=== PATIENT | female | born 1955 | race Caucasian/White ===

== ENCOUNTER 2016-06-29 22:10 | Emergency (ER) | payer OTHER ==
[~2016-06-29] VITALS: Ht 157.5 cm; Wt 107.1 kg
[~2016-06-29 22:10] MED LIST: ADVAIR HFA120 INHALA IH; ALTERA NEBULIZ1 EACH MC; ATORVASTATIN CA20 MG PO; ATORVASTATIN CA40 MG PO; AUGMENTIN500 MG PO; AUGMENTIN875 MG PO; CEPHALEXIN500 MG PO; CIPRO500 MG PO; DUONEB 2.5-0.5 M3 ML AEROSOL; FISH OIL 1,0001 EA10 PO; GLUCOPHAGE500 MG PO; HYCODAN SYRUP480 ML PO; HYDROCHLOROTH12.5 M3 PO; HYDROCHLOROTHIA25 MG PO; IBUPROFEN800 MG PO; KEFLEX500 MG PO; LEVAQUIN750 MG PO; LEVOFLOXACIN750 MG PO; LISINOPRIL10 MG PO; LISINOPRIL5 MG PO; MEDROL DOSEPAK4 MG PO; MELOXICAM7.5 MG PO; METFORMIN HCL500 M4 PO; METRONIDAZOLE500 MG PO; NEXIUM40 MG PO; NICODERM CQ1 EAC1 TD; NICODERM CQ1 EACH TD; NORCO 5/3251 TABLET PO; OXYBUTYNIN CHLOR5 MG PO; PREDNISONE10 MG PO; PREDNISONE20 MG PO; ROBITUSSIN AC,T10 ML PO; SPIRIVA RESPIMAT4 GM IH; TESSALON PERLE100 MG PO; TUSSIN15 MG/5 M1 PO; VENTOLIN HFA18 GM IH; VITAMIN B-122500 MCG SL; VITAMIN D32000 UNIT PO; ZITHROMAX250 MG PO
[2016-06-29 22:49] LABS: MCH 29.3 PG (29.0-34.0); MCHC 33.2 G/DL (30.0-36.0); MCV 88.4 FL (83-99); MEAN PLAT.VOLUME 9.4 uM^3 (9.5-12.4); PLATELET COUNT 311 K/uL (156-360); RBC DIS.WIDTH-CV 14.1 % (11.8-14.6); RBC DIS.WIDTH-SD 45.4 % (39-53); RED BLOOD COUNT 4.64 M/uL (3.80-5.20); WHITE BLOOD COUNT 11.9 K/uL (4.1-10.2)
[2016-06-29 22:59] LABS: CHLORIDE 102 mEq/L (99-109); POTASSIUM 3.6 mEq/L (3.7-5.4); SODIUM 140 mEq/L (136-147)
[2016-06-29 23:02] LABS: GLUCOSE 126 mg/dL (70-99)
[2016-06-29 23:03] LABS: ANION GAP 10 MEQ/L (2-14)
[2016-06-29 23:05] LABS: ALKALINE PHOSPHATASE 80 IU/L (3-129); GFR ESTIMATE (CALCULATED) > 59 mL/min/
[2016-06-29 23:05] LABS: ADD MIUA? NO; BILIRUBIN NEGATIVE; BLOOD NEGATIVE; COLOR YELLOW ((YELLOW)); GLUCOSE (STRIP) NEGATIVE; KETONES NEGATIVE; LEUKOCYTES NEGATIVE; NITRITE NEGATIVE; PROTEIN (STRIP) NEGATIVE; SPECIFIC GRAVITY 1.018 (1.000-1.030); UCUL ADDED? NO
[2016-06-29 23:06] LABS: UREA NITROGEN (BUN) 14 mg/dL (9-23)
[2016-06-29 23:07] LABS: DIRECT BILIRUBIN 0.1 mg/dL (0.0-0.3)
[2016-06-29 23:09] LABS: LIPASE 14 U/L (1.0-51.0)
[2016-06-29 23:45] LABS: TOTAL BILIRUBIN 0.3 mg/dL (0.0-1.0)
[2016-06-30] MEDS ORDERED: CIPRO500 MG PO (01:20)
[2016-06-30] MEDS ORDERED: FLAGYL500 MG PO (01:20)
[2016-06-30 01:35] VITALS: BP 113/51
== END 2016-06-30 01:47 | disposition home or self-care (01) ==
LOC: EME 22:10
PROVIDERS: Emergency Medicine
DX: K57.92 Diverticulitis of intestine, part unspecified, without perforation or abscess without bleeding (principal); E87.6 Hypokalemia; E11.9 Type 2 diabetes mellitus without complications; I10 Essential (primary) hypertension; K21.9 Gastro-esophageal reflux disease without esophagitis; F17.200 Nicotine dependence, unspecified, uncomplicated
CPT/HCPCS: 74176; 80048; 80076; 81003; 83690; 85027; 99281; 99285; J2270; J2405; J7030

== ENCOUNTER 2017-01-30 16:52 | Emergency (ER) | payer OTHER ==
[~2017-01-30] VITALS: Ht 157.5 cm; Wt 106.8 kg
[~2017-01-30 16:52] MED LIST changes: +FLAGYL500 MG PO
[2017-01-30] MEDS ORDERED: LEVAQUIN500 MG PO (18:29)
[2017-01-30] MEDS ORDERED: PREDNISONE20 MG PO (18:29)
[2017-01-30] MEDS ORDERED: DUONEB 2.5-0.5 M3 ML AEROSOL (18:29)
[2017-01-30 18:38] VITALS: BP 176/74
== END 2017-01-30 18:43 | disposition home or self-care (01) ==
LOC: EME 16:52
DX: J44.0 Chronic obstructive pulmonary disease with (acute) lower respiratory infection (principal); J18.0 Bronchopneumonia, unspecified organism; Z87.891 Personal history of nicotine dependence; E11.9 Type 2 diabetes mellitus without complications; I10 Essential (primary) hypertension; K21.9 Gastro-esophageal reflux disease without esophagitis; Z79.84 Long term (current) use of oral hypoglycemic drugs
CPT/HCPCS: 94640; 99281; 99284; J7512

== ENCOUNTER 2017-07-20 20:13 | Emergency (ER) | payer OTHER ==
[~2017-07-20] VITALS: Ht 157.5 cm; Wt 107.0 kg
[~2017-07-20 20:13] MED LIST changes: +LEVAQUIN500 MG PO
[2017-07-20 21:11] LABS: HEMATOCRIT 45.3 % (36.0-46.0); HEMOGLOBIN 14.8 G/DL (11.9-15.5); MCH 28.8 PG (29.0-34.0); MCHC 32.7 G/DL (30.0-36.0); MCV 88.3 FL (83-99); PLATELET COUNT 329 K/uL (156-360); RBC DIS.WIDTH-CV 13.3 % (11.8-14.6); RBC DIS.WIDTH-SD 43.8 % (39-53); RED BLOOD COUNT 5.13 M/uL (3.80-5.20); WHITE BLOOD COUNT 13.9 K/uL (4.1-10.2)
[2017-07-20 21:20] LABS: ALBUMIN 3.8 g/dL (3.2-4.8); CHLORIDE 104 mEq/L (99-109); POTASSIUM 4.5 mEq/L (3.7-5.4); SODIUM 140 mEq/L (136-147)
[2017-07-20 21:23] LABS: GLUCOSE 174 mg/dL (70-99); TOTAL PROTEIN 6.4 g/dL (6.4-8.3)
[2017-07-20 21:24] LABS: TOTAL BILIRUBIN 0.3 mg/dL (0.0-1.0)
[2017-07-20 21:26] LABS: ALKALINE PHOSPHATASE 96 IU/L (3-129); CREATININE 0.8 mg/dL (0.6-1.3); GFR ESTIMATE (CALCULATED) > 59 mL/min/
[2017-07-20 21:27] LABS: UREA NITROGEN (BUN) 14 mg/dL (9-23)
[2017-07-20 21:28] LABS: AST (GOT) 11 IU/L (2-34)
[2017-07-20 21:29] LABS: ALT (GPT) 14 IU/L (3-49)
[2017-07-20 23:31] LABS: APPEARANCE CLEAR ((CLEAR)); BILIRUBIN NEGATIVE; BLOOD SMALL; COLOR YELLOW ((YELLOW)); GLUCOSE (STRIP) NEGATIVE; KETONES NEGATIVE; LEUKOCYTES NEGATIVE; NITRITE NEGATIVE; PROTEIN (STRIP) NEGATIVE; SPECIFIC GRAVITY 1.023 (1.000-1.030); UROBILINOGEN 0.2 MG/DL (0.2-1.0)
[2017-07-20 23:36] LABS: BACTERIA 2+ /HPF; EPITHELIAL CELLS RARE /HPF; MUCUS TRACE /LPF; RED BLOOD CELLS 0-5 /HPF (0-5); UCUL ADDED? YES; WHITE BLOOD CELLS 0-5 /HPF (0-5)
[2017-07-21] MEDS ORDERED: FLAGYL500 MG PO (01:21)
[2017-07-21] MEDS ORDERED: PERCOCET 5/31 TABLET PO (01:21)
[2017-07-21] MEDS ORDERED: CIPRO500 MG PO (01:21)
[2017-07-21 01:26] VITALS: BP 123/75
== END 2017-07-21 01:40 | disposition home or self-care (01) ==
LOC: EME 20:13
DX: N39.0 Urinary tract infection, site not specified (principal); K57.32 Diverticulitis of large intestine without perforation or abscess without bleeding; E11.9 Type 2 diabetes mellitus without complications; Z79.84 Long term (current) use of oral hypoglycemic drugs; J44.9 Chronic obstructive pulmonary disease, unspecified; I10 Essential (primary) hypertension; K21.9 Gastro-esophageal reflux disease without esophagitis; F17.200 Nicotine dependence, unspecified, uncomplicated
CPT/HCPCS: 74176; 80053; 81003; 85027; 87077; 87086; 87186; 99281; 99284

== ENCOUNTER → 2017-10-24 | Outpatient (CLI) | payer OTHER ==
[~2017-10-24] MED LIST changes: +PERCOCET 5/31 TABLET PO
== END | disposition home or self-care (01) ==
LOC: RAD 10:42
DX: R05 Cough (principal)
CPT/HCPCS: 71046

== ENCOUNTER 2017-11-17 02:20 | Emergency (ER) | payer OTHER ==
[~2017-11-17] VITALS: Ht 157.5 cm; Wt 106.8 kg
[2017-11-17 02:50] LABS: APPEARANCE CLEAR ((CLEAR)); BILIRUBIN NEGATIVE; BLOOD MODERATE; COLOR YELLOW ((YELLOW)); GLUCOSE (STRIP) NEGATIVE; KETONES NEGATIVE; LEUKOCYTES NEGATIVE; NITRITE NEGATIVE; PROTEIN (STRIP) NEGATIVE; SPECIFIC GRAVITY 1.014 (1.000-1.030); UROBILINOGEN 0.2 MG/DL (0.2-1.0)
[2017-11-17 02:57] LABS: BACTERIA 1+ /HPF; EPITHELIAL CELLS RARE /HPF; MUCUS NONE SEEN /LPF; UCUL ADDED? NO; WHITE BLOOD CELLS 0-5 /HPF (0-5)
[2017-11-17 03:36] LABS: BASOPHIL (%) 0.3 % (0-1); EOSINOPHIL (%) 0.5 % (0-5); EOSINOPHIL COUNT 0.1 K/uL (0-0.3); IMMATURE GRANULOCYTE (%) 0.4 % (0.0-0.7); LYMPHOCYTE (%) 23.7 % (15-42); LYMPHOCYTE COUNT 3.1 K/uL (1.0-2.8); MCH 28.8 PG (29.0-34.0); MCHC 32.6 G/DL (30.0-36.0); MCV 88.5 FL (83-99); MONOCYTE (%) 6.8 % (3-12); MONOCYTE COUNT 0.9 K/uL (0-0.8); NEUTROPHIL (%) 68.3 % (45-76); NEUTROPHIL COUNT 8.9 K/uL (1.8-6.4); PLATELET COUNT 278 K/uL (156-360); RBC DIS.WIDTH-CV 13.6 % (11.8-14.6); RBC DIS.WIDTH-SD 43.8 % (39-53); RED BLOOD COUNT 4.86 M/uL (3.80-5.20); WHITE BLOOD COUNT 13.1 K/uL (4.1-10.2)
[2017-11-17 03:45] LABS: ALBUMIN 3.7 g/dL (3.2-4.8)
[2017-11-17 03:46] LABS: CHLORIDE 103 mEq/L (99-109); POTASSIUM 4.4 mEq/L (3.7-5.4); SODIUM 138 mEq/L (136-147)
[2017-11-17 03:48] LABS: GLUCOSE 156 mg/dL (70-99); TOTAL PROTEIN 6.3 g/dL (6.4-8.3)
[2017-11-17 03:50] LABS: TOTAL BILIRUBIN 0.2 mg/dL (0.0-1.0)
[2017-11-17 03:51] LABS: ALKALINE PHOSPHATASE 102 IU/L (3-129)
[2017-11-17 03:52] LABS: CREATININE 0.8 mg/dL (0.6-1.3); GFR ESTIMATE (CALCULATED) > 59 mL/min/
[2017-11-17 03:53] LABS: AST (GOT) 11 IU/L (2-34); DIRECT BILIRUBIN 0.1 mg/dL (0.0-0.3); UREA NITROGEN (BUN) 20 mg/dL (9-23)
[2017-11-17 03:55] LABS: ALT (GPT) 16 IU/L (3-49); LIPASE 25 U/L (1.0-51.0)
[2017-11-17] MEDS ORDERED: FLAGYL500 MG PO (04:07)
[2017-11-17] MEDS ORDERED: CIPRO500 MG PO (04:07)
[2017-11-17] MEDS ORDERED: ULTRACET1 TABLET PO (04:07)
[2017-11-17 04:26] VITALS: BP 146/77
== END 2017-11-17 04:28 | disposition home or self-care (01) ==
LOC: EME 02:20
PROVIDERS: Physician Assistant
DX: N39.0 Urinary tract infection, site not specified (principal); K57.32 Diverticulitis of large intestine without perforation or abscess without bleeding; R31.9 Hematuria, unspecified; I10 Essential (primary) hypertension; E11.9 Type 2 diabetes mellitus without complications; Z79.84 Long term (current) use of oral hypoglycemic drugs; J44.9 Chronic obstructive pulmonary disease, unspecified; K21.9 Gastro-esophageal reflux disease without esophagitis; F17.200 Nicotine dependence, unspecified, uncomplicated
CPT/HCPCS: 74176; 80048; 80076; 81003; 83605; 83690; 85025; 87077; 87086; 87186; 99281; 99283; J1885

== ENCOUNTER 2018-01-14 17:27 | Emergency (ER) | payer OTHER ==
[~2018-01-14] VITALS: Ht 157.5 cm; Wt 108.2 kg
[~2018-01-14 17:27] MED LIST changes: +ULTRACET1 TABLET PO
[2018-01-14 18:16] LABS: BASOPHIL (%) 0.3 % (0-1); EOSINOPHIL (%) 0.5 % (0-5); EOSINOPHIL COUNT 0.1 K/uL (0-0.3); HEMATOCRIT 43.3 % (36.0-46.0); HEMOGLOBIN 14.3 G/DL (11.9-15.5); IMMATURE GRANULOCYTE (%) 0.5 % (0.0-0.7); LYMPHOCYTE (%) 21.4 % (15-42); LYMPHOCYTE COUNT 2.4 K/uL (1.0-2.8); MCH 29.3 PG (29.0-34.0); MCV 88.7 FL (83-99); MONOCYTE COUNT 0.8 K/uL (0-0.8); NEUTROPHIL (%) 70.3 % (45-76); NEUTROPHIL COUNT 7.7 K/uL (1.8-6.4); PLATELET COUNT 292 K/uL (156-360); RBC DIS.WIDTH-CV 14.4 % (11.8-14.6); RBC DIS.WIDTH-SD 46.5 % (39-53); RED BLOOD COUNT 4.88 M/uL (3.80-5.20)
[2018-01-14 18:25] LABS: AMYLASE 36 IU/L (1-118); CHLORIDE 104 mEq/L (99-109); POTASSIUM 4.2 mEq/L (3.7-5.4); SODIUM 143 mEq/L (136-147)
[2018-01-14 18:27] LABS: GLUCOSE 105 mg/dL (70-99)
[2018-01-14 18:30] LABS: SERUM ETHYL ALCOHOL < 10 mg/dL
[2018-01-14 18:31] LABS: CREATININE 0.7 mg/dL (0.6-1.3); GFR ESTIMATE (CALCULATED) > 59 mL/min/
[2018-01-14 18:32] LABS: UREA NITROGEN (BUN) 12 mg/dL (9-23)
[2018-01-14 18:34] LABS: LIPASE 15 U/L (1.0-51.0)
[2018-01-14 19:03] LABS: APPEARANCE CLEAR ((CLEAR)); BILIRUBIN NEGATIVE; BLOOD NEGATIVE; COLOR STRAW ((YELLOW)); GLUCOSE (STRIP) NEGATIVE; KETONES NEGATIVE; LEUKOCYTES NEGATIVE; NITRITE NEGATIVE; PROTEIN (STRIP) NEGATIVE; SPECIFIC GRAVITY 1.006 (1.000-1.030); UCUL ADDED? NO; UROBILINOGEN 0.2 MG/DL (0.2-1.0)
[2018-01-14 19:15] LABS: AMPHETAMINE NEGATIVE (500 ng/mL); BARBITURATES NEGATIVE (200 ng/mL); BENZODIAZEPINES NEGATIVE (150 ng/mL); BUPRENORPHINE NEGATIVE (10 ng/mL); COCAINE NEGATIVE (150 ng/mL); METHADONE NEGATIVE (200 ng/mL); METHAMPHETAMINE NEGATIVE (500 ng/mL); OPIATES (MORPHINE) NEGATIVE (100 ng/mL); OXYCODONE NEGATIVE (100 ng/mL); PHENCYCLIDINE NEGATIVE (25 ng/mL); PROPOXYPHENE NEGATIVE (300 ng/mL); THC CANNABINOIDS NEGATIVE (50 ng/mL); TRICYCLIC ANTIDEPRESSANTS NEGATIVE (300 ng/mL)
[2018-01-14] MEDS ORDERED: ROBAXIN750 MG PO (20:19)
[2018-01-14] MEDS ORDERED: NORCO 10/3251 TABLET PO (20:19)
[2018-01-14] MEDS ORDERED: NAPROSYN500 MG PO (20:19)
[2018-01-14 20:41] VITALS: BP 173/77
== END 2018-01-14 20:48 | disposition home or self-care (01) ==
LOC: EME 17:27
PROVIDERS: Emergency Medicine
DX: S30.0XXA Contusion of lower back and pelvis, initial encounter (principal); R07.81 Pleurodynia; W18.2XXA Fall in (into) shower or empty bathtub, initial encounter; Y93.E1 Activity, personal bathing and showering; E11.9 Type 2 diabetes mellitus without complications; Z79.84 Long term (current) use of oral hypoglycemic drugs; J43.9 Emphysema, unspecified; I10 Essential (primary) hypertension; K21.9 Gastro-esophageal reflux disease without esophagitis; F17.200 Nicotine dependence, unspecified, uncomplicated
CPT/HCPCS: 71260; 74177; 80048; 81003; 82150; 83690; 85025; 86850; 86900; 86901; 99281; 99285; G0480; J3010; J7040

== ENCOUNTER 2018-02-16 20:07 | Emergency (ER) | payer OTHER ==
[~2018-02-16] VITALS: Ht 157.5 cm; Wt 10.0 kg
[~2018-02-16 20:07] MED LIST changes: +NAPROSYN500 MG PO; +NORCO 10/3251 TABLET PO; +ROBAXIN750 MG PO
[2018-02-16] MEDS ORDERED: NORCO 5/3251 TABLET PO (22:04)
[2018-02-16 22:37] VITALS: BP 174/89
== END 2018-02-16 22:38 | disposition home or self-care (01) ==
LOC: EME 20:07
DX: S83.92XA Sprain of unspecified site of left knee, initial encounter (principal); S86.912A Strain of unspecified muscle(s) and tendon(s) at lower leg level, left leg, initial encounter; S80.212A Abrasion, left knee, initial encounter; W01.0XXA Fall on same level from slipping, tripping and stumbling without subsequent striking against object, initial encounter; Y92.480 Sidewalk as the place of occurrence of the external cause; E11.9 Type 2 diabetes mellitus without complications; Z79.84 Long term (current) use of oral hypoglycemic drugs; J43.9 Emphysema, unspecified; I10 Essential (primary) hypertension; K21.9 Gastro-esophageal reflux disease without esophagitis; F17.200 Nicotine dependence, unspecified, uncomplicated
CPT/HCPCS: 73564; 99281; 99284